=== PATIENT | female | born 1975 | race Caucasian/White ===

== ENCOUNTER 2018-05-04 08:02 | Inpatient (IN) | payer MEDICAID ==
[2018-05-04] MEDS ORDERED: METHYLERGONOVINE 0.2 MG INJ IM ×2 (09:30→17:30)
[2018-05-04] MEDS ORDERED: CARBOPROST 250 MCG INJ IM ×2 (09:30→17:30)
[2018-05-04] MEDS ORDERED: MISOPROSTOL 200 MCG TAB PR ×2 (09:30→17:30)
[2018-05-04] MEDS: LACTATED RINGER'S 1,000 ML IV ×3 (09:32→17:08)
[2018-05-04 11:05] LABS: ADD MAN DIFF? NO
[2018-05-04 11:10] LABS: BASOPHILS % 0.3 % (0.0-2.0); EOSINOPHILS # 0.1 10^3/ul (0.0-0.5); EOSINOPHILS % 0.8 % (0.0-7.0); LYMPHOCYTES # 1.2 10^3/ul (0.8-2.9); LYMPHOCYTES % 14.6 % (15.0-51.0); MEAN CORPUSCULAR HEMOGLOBIN 31.1 pg (29.0-33.0); MEAN CORPUSCULAR HGB CONC 34.2 g/dl (32.0-37.0); MEAN CORPUSCULAR VOLUME 90.9 fl (82.0-101.0); MEAN PLATELET VOLUME 12.3 fl (7.4-10.4); MONOCYTE # 0.4 10^3/ul (0.3-0.9); MONOCYTES % 5.3 % (0.0-11.0); NEUTROPHIL # 6.2 10^3/ul (1.6-7.5); NEUTROPHILS % 78.1 % (39.0-77.0); PLATELET COUNT 145 10^3/UL (140-415); RED BLOOD COUNT 4.18 10^6/ul (4.20-5.40)
[2018-05-04 11:10] LABS: WHITE BLOOD COUNT 7.9 10^3/ul (4.8-10.8)
[2018-05-04] MEDS: CITRIC ACID/NA CITRATE 30 ML CUP PO (11:30)
[2018-05-04] MEDS: METOCLOPRAMIDE 10 MG INJ IV (11:30)
[2018-05-04] MEDS: FAMOTIDINE 20 MG INJ IV (11:30)
[2018-05-04 11:31] LABS: INR 0.95; PROTIME 12.8 Sec (11.9-14.9)
[2018-05-04] MEDS ORDERED: CEFAZOLIN 2 GM/50 ML (PMX) 50 ML IVPB (12:52)
[2018-05-04] MEDS ORDERED: morphine SULFATE/PF (10 MG/10 ML) INJ (12:58)
[2018-05-04] MEDS ORDERED: PHENYLephrine (100 MCG/ML) 10ML SYG (13:21)
[2018-05-04] MEDS ORDERED: ONDANSETRON 4 MG INJ (13:24)
[2018-05-04] MEDS ORDERED: FENTAnyl 50 MCG/ML VIAL IV ×3 (13:30)
[2018-05-04] MEDS ORDERED: HYDROmorphONE 1 MG/5 ML IV SYRINGE IV ×3 (13:30)
[2018-05-04] MEDS ORDERED: ONDANSETRON 4 MG INJ IV ×2 (13:30→14:00)
[2018-05-04] MEDS: CEFAZOLIN 2 GM/50 ML (PMX) 50 ML IVPB (13:30)
[2018-05-04] MEDS ORDERED: DIPHENHYDRAMINE 50 MG INJ IV ×2 (13:30→14:00)
[2018-05-04] MEDS ORDERED: MEPERIDINE 25 MG INJ IV (13:30)
[2018-05-04] MEDS ORDERED: PROCHLORPERAZINE 10 MG INJ IV (13:30)
[2018-05-04] MEDS ORDERED: KETOROLAC 30 MG INJ IV (13:30)
[2018-05-04] MEDS ORDERED: EPHEDrine 25 MG/5 ML SYG (13:38)
[2018-05-04] MEDS ORDERED: OXYTOCIN 30 UNITS/LR 500 ML IV ×2 (13:45→17:30)
[2018-05-04] MEDS ORDERED: HYDROmorphONE 0.5 MG/0.5 ML SYG IV ×2 (14:00)
[2018-05-04] MEDS ORDERED: NALBUPHINE HCL (10 MG/1 ML) INJ IV (14:00)
[2018-05-04] MEDS ORDERED: NALOXONE (0.4 MG/ML) INJ IV (14:00)
[2018-05-04] MEDS ORDERED: ZOLPIDEM 5 MG TAB PO (14:00)
[2018-05-04] MEDS: OXYTOCIN 30 UNITS/LR 500 ML IV ×3 (15:30→17:58)
[2018-05-04] MEDS: KETOROLAC 30 MG INJ IV (15:32)
[2018-05-04] MEDS ORDERED: NA PHOSPHATE/BIPHOS 133 ML ENEMA PR (17:30)
[2018-05-04] MEDS ORDERED: NACL 0.9% 3 ML SYG IV (17:30)
[2018-05-04] MEDS ORDERED: LANOLIN HPA 1 PKT TOP (17:30)
[2018-05-04 21:10] LABS: RAPID PLASMA REAGIN NONREACTIVE (NR)
[2018-05-05] MEDS: LACTATED RINGER'S 1,000 ML IV ×2 (04:19→12:00)
[2018-05-05] MEDS: KETOROLAC 30 MG INJ IV (06:52)
[2018-05-05 08:51] LABS: ADD MAN DIFF? NO
[2018-05-05 08:56] LABS: WHITE BLOOD COUNT 8.7 10^3/ul (4.8-10.8)
[2018-05-05 08:56] LABS: BASOPHILS % 0.2 % (0.0-2.0); EOSINOPHILS % 0.5 % (0.0-7.0); HEMATOCRIT 31.8 % (37.0-47.0); HEMOGLOBIN 10.7 g/dl (12.0-16.0); LYMPHOCYTES # 0.8 10^3/ul (0.8-2.9); LYMPHOCYTES % 9.5 % (15.0-51.0); MEAN CORPUSCULAR HEMOGLOBIN 30.9 pg (29.0-33.0); MEAN CORPUSCULAR HGB CONC 33.6 g/dl (32.0-37.0); MEAN CORPUSCULAR VOLUME 91.9 fl (82.0-101.0); MEAN PLATELET VOLUME 11.5 fl (7.4-10.4); MONOCYTE # 0.4 10^3/ul (0.3-0.9); MONOCYTES % 4.5 % (0.0-11.0); NEUTROPHIL # 7.4 10^3/ul (1.6-7.5); NEUTROPHILS % 84.8 % (39.0-77.0); PLATELET COUNT 125 10^3/UL (140-415); RED BLOOD COUNT 3.46 10^6/ul (4.20-5.40); RED CELL DISTRIBUTION WIDTH 14.1 % (11.5-14.5)
[2018-05-05] MEDS: IBUPROFEN 800 MG TAB PO ×2 (14:21→22:10)
[2018-05-05] MEDS: HYDROCODONE/APAP (5/325) TAB PO ×3 (14:22→23:37)
[2018-05-05] MEDS: INFLUENZA VIRUS VACCINE 0.5 ML (DISPENSING) IM* (16:10)
[2018-05-06] MEDS: IBUPROFEN 800 MG TAB PO (05:48)
[2018-05-06] MEDS: HYDROCODONE/APAP (5/325) TAB PO (07:07)
[2018-05-06] MEDS ORDERED: INFLUENZA VIRUS VACCINE 0.5 ML (DISPENSING) IM* (10:00)
[2018-05-06] MEDS ORDERED: PNEUMOCOCCAL VACCINE 0.5 ML INJ (DISPENSING) IM* (10:00)
[2018-05-06] MEDS: DIPHTH/TET/ACEL PERTUSS (ADULT) 0.5 ML VIAL IM* (11:11)
[2018-05-07] MEDS ORDERED: MEASLES,MUMPS,RUBELLA VACCINE INJ SC* (09:00)
[2018-05-07] MEDS ORDERED: DIPHTH/TET/ACEL PERTUSS (ADULT) 0.5 ML VIAL IM* (09:00)
== END 2018-05-06 11:55 | disposition home or self-care (01) | DRG 785 ==
LOC: L-D 08:02 → PP1 17:14
PROVIDERS: Obstetrics & Gynecology
PROC: 10D00Z1 Extraction of Products of Conception, Low, Open Approach (ICD-10-PCS; principal; 2018-05-04 12:30)
PROC: 0UB70ZZ Excision of Bilateral Fallopian Tubes, Open Approach (ICD-10-PCS; 2018-05-04 12:30)
DX: O34.219 Maternal care for unspecified type scar from previous cesarean delivery (principal); O99.214 Obesity complicating childbirth; E66.9 Obesity, unspecified; Z3A.39 39 weeks gestation of pregnancy; Z37.0 Single live birth; Z30.2 Encounter for sterilization; Z23 Encounter for immunization
CPT/HCPCS: 85025; 85610; 85730; 86592; 86850; 86900; 86901; 88302; 90686; 90715; 99464

== ENCOUNTER 2018-06-06 22:07 | Emergency (ER) | payer MEDICAID ==
[2018-06-06] MEDS: SOD CHLORIDE 0.9% 1,000 ML IV (22:55)
[2018-06-06] MEDS: morphine 4 MG/ML VIAL IV (22:55)
[2018-06-06] MEDS: ONDANSETRON 4 MG INJ IV (22:55)
[2018-06-06 23:01] LABS: ADD MAN DIFF? NO
[2018-06-06 23:04] LABS: BASOPHILS % 0.5 % (0.0-2.0); EOSINOPHILS # 0.1 10^3/ul (0.0-0.5); EOSINOPHILS % 2.3 % (0.0-7.0); HEMATOCRIT 40.9 % (37.0-47.0); HEMOGLOBIN 13.4 g/dl (12.0-16.0); LYMPHOCYTES # 1.5 10^3/ul (0.8-2.9); MEAN CORPUSCULAR HGB CONC 32.8 g/dl (32.0-37.0); MEAN CORPUSCULAR VOLUME 91.7 fl (82.0-101.0); MEAN PLATELET VOLUME 11.1 fl (7.4-10.4); MONOCYTE # 0.5 10^3/ul (0.3-0.9); MONOCYTES % 7.7 % (0.0-11.0); NEUTROPHILS % 65.2 % (39.0-77.0); PLATELET COUNT 178 10^3/UL (140-415); RED BLOOD COUNT 4.46 10^6/ul (4.20-5.40); RED CELL DISTRIBUTION WIDTH 12.3 % (11.5-14.5)
[2018-06-06 23:04] LABS: WHITE BLOOD COUNT 6.1 10^3/ul (4.8-10.8)
[2018-06-06 23:09] LABS: ADD UMIC YES; UR ASCORBIC ACID NEGATIVE (NEGATIVE); UR BILIRUBIN (Dip) NEGATIVE (NEGATIVE); UR BLOOD (Dip) 1+ mg/dL (NEGATIVE); UR CLARITY CLEAR (CLEAR); UR COLOR YELLOW (YELLOW); UR GLUCOSE (Dip) NEGATIVE (NEGATIVE); UR KETONES (Dip) NEGATIVE (NEGATIVE); UR LEUKOCYTE ESTERASE (Dip) NEGATIVE Leu/ul (NEGATIVE); UR MUCUS FEW /HPF (NONE SEEN); UR NITRITE (Dip) NEGATIVE (NEGATIVE); UR RBC 3 /HPF (0-5); UR SPECIFIC GRAVITY (Dip) 1.023 (1.003-1.030); UR SQUAMOUS EPITHELIAL CELL FEW /HPF (FEW); UR TOTAL PROTEIN (Dip) NEGATIVE (NEGATIVE); UR UROBILINOGEN (Dip) NEGATIVE (NEGATIVE); UR WBC 1 /HPF (0-5)
[2018-06-06 23:25] LABS: ALANINE AMINOTRANSFERASE 29 IU/L (13-69); ALBUMIN 4.8 g/dl (3.3-4.9); ALBUMIN/GLOBULIN RATIO 1.33; ALKALINE PHOSPHATASE 130 IU/L (42-121); ANION GAP 14 (5-13); ASPARTATE AMINO TRANSFERASE 43 IU/L (15-46); BILIRUBIN,INDIRECT 0.1 mg/dl (0-1.1); BILIRUBIN,TOTAL 0.1 mg/dl (0.2-1.3); BLOOD UREA NITROGEN 21 mg/dl (7-20); CALCIUM 9.8 mg/dl (8.4-10.2); CARBON DIOXIDE 26 mmol/L (21-31); CHLORIDE 103 mmol/L (97-110); CREATININE 0.62 mg/dl (0.44-1.00); Estimated GFR > 60 mL/min (>60); GLUCOSE 83 mg/dl (70-220); LIPASE 114 U/L (23-300); SODIUM 143 mmol/L (135-144); TOTAL PROTEIN 8.4 g/dl (6.1-8.1)
== END 2018-06-07 01:32 | disposition home or self-care (01) ==
LOC: E/R 06-07 01:32
DX: K80.20 Calculus of gallbladder without cholecystitis without obstruction (principal)
CPT/HCPCS: 36415; 76705; 80053; 81001; 81025; 83690; 85025; 96374; 96375; 99285-25

== ENCOUNTER 2018-06-25 08:44 | Emergency (ER) | payer MEDICAID ==
[2018-06-25 09:21] LABS: URINE BLOOD (Dip) POC Trace-lysed (NEGATIVE); URINE GLUCOSE (Dip) POC Negative (NEGATIVE); URINE KETONES (Dip) POC Negative (NEGATIVE); URINE LEUKOCYTE EST (Dip) POC Negative (NEGATIVE); URINE NITRITE (Dip) POC Negative (NEGATIVE); URINE TOTAL PROTEIN POC Negative (NEGATIVE)
[2018-06-25 09:21] LABS: URINE PH (Dip) POC 5.5 (5.0-8.5)
[2018-06-25] MEDS: PHENAZOPYRIDINE 100 MG TAB PO (09:30)
== END 2018-06-25 10:58 | disposition home or self-care (01) ==
LOC: FTE 08:44
DX: R30.0 Dysuria (principal)
CPT/HCPCS: 81003; 81025; 99282

== ENCOUNTER 2018-06-27 03:19 | Emergency (ER) | payer MEDICAID ==
[2018-06-27 04:37] LABS: URINE BLOOD (Dip) POC Negative (NEGATIVE); URINE KETONES (Dip) POC Trace (NEGATIVE); URINE LEUKOCYTE EST (Dip) POC 3+ (NEGATIVE); URINE NITRITE (Dip) POC Positive (NEGATIVE); URINE TOTAL PROTEIN POC 2+ (NEGATIVE)
[2018-06-27] MEDS: ACETAMINOPHEN 500 MG TAB PO (07:00)
[2018-06-27] MEDS: KETOROLAC 60 MG INJ IM (07:24)
== END 2018-06-27 07:40 | disposition home or self-care (01) ==
LOC: FTE 03:19
DX: N39.0 Urinary tract infection, site not specified (principal)
CPT/HCPCS: 81003; 84703; 96372; 99284-25

== ENCOUNTER 2018-07-05 00:38 | Inpatient (IN) | payer MEDICAID ==
[2018-07-05 01:53] LABS: ADD MAN DIFF? NO
[2018-07-05 01:56] LABS: WHITE BLOOD COUNT 7.4 10^3/ul (4.8-10.8)
[2018-07-05 01:56] LABS: BASOPHILS % 0.5 % (0.0-2.0); EOSINOPHILS # 0.1 10^3/ul (0.0-0.5); EOSINOPHILS % 1.5 % (0.0-7.0); HEMATOCRIT 37.9 % (37.0-47.0); HEMOGLOBIN 12.6 g/dl (12.0-16.0); LYMPHOCYTES # 1.7 10^3/ul (0.8-2.9); LYMPHOCYTES % 22.7 % (15.0-51.0); MEAN CORPUSCULAR HGB CONC 33.2 g/dl (32.0-37.0); MEAN CORPUSCULAR VOLUME 87.1 fl (82.0-101.0); MEAN PLATELET VOLUME 10.8 fl (7.4-10.4); MONOCYTE # 0.5 10^3/ul (0.3-0.9); MONOCYTES % 6.2 % (0.0-11.0); NEUTROPHIL # 5.1 10^3/ul (1.6-7.5); NEUTROPHILS % 68.6 % (39.0-77.0); PLATELET COUNT 222 10^3/UL (140-415); RED BLOOD COUNT 4.35 10^6/ul (4.20-5.40); RED CELL DISTRIBUTION WIDTH 12.3 % (11.5-14.5)
[2018-07-05] MEDS: ONDANSETRON 4 MG INJ IV (02:06)
[2018-07-05] MEDS: morphine 4 MG/ML VIAL IV ×4 (02:06→17:41)
[2018-07-05 02:15] LABS: ALANINE AMINOTRANSFERASE 42 IU/L (13-69); ALBUMIN 4.4 g/dl (3.3-4.9); ALBUMIN/GLOBULIN RATIO 1.29; ALKALINE PHOSPHATASE 102 IU/L (42-121); ANION GAP 11 (5-13); ASPARTATE AMINO TRANSFERASE 43 IU/L (15-46); BILIRUBIN,INDIRECT 0.1 mg/dl (0-1.1); BILIRUBIN,TOTAL 0.1 mg/dl (0.2-1.3); BLOOD UREA NITROGEN 21 mg/dl (7-20); CALCIUM 9.6 mg/dl (8.4-10.2); CARBON DIOXIDE 24 mmol/L (21-31); CHLORIDE 107 mmol/L (97-110); CREATININE 0.78 mg/dl (0.44-1.00); Estimated GFR > 60 mL/min (>60); GLUCOSE 92 mg/dl (70-220); LIPASE 84 U/L (23-300); POTASSIUM 3.9 mmol/L (3.5-5.1); SODIUM 142 mmol/L (135-144); TOTAL PROTEIN 7.8 g/dl (6.1-8.1)
[2018-07-05] MEDS: HYDROmorphONE 0.5 MG/0.5 ML SYG IV (02:44)
[2018-07-05] MEDS: HYDROmorphONE 2 MG/ML SYG IV (03:25)
[2018-07-05] MEDS ORDERED: ACETAMINOPHEN 325 MG TAB PO ×2 (04:30→05:00)
[2018-07-05] MEDS ORDERED: ONDANSETRON 4 MG INJ IV ×2 (04:30→05:00)
[2018-07-05] MEDS: AMPICILLIN/SULB 3 GM/NS (PMX) 100 ML IVPB (04:45)
[2018-07-05] MEDS ORDERED: NACL 0.9% 3 ML SYG IV (05:00)
[2018-07-05] MEDS ORDERED: HYDROCODONE/APAP (5/325) TAB PO (05:00)
[2018-07-05] MEDS: DEXTROSE 5%-0.45% NACL 1,000 ML IV ×2 (11:24→14:38)
[2018-07-05] MEDS ORDERED: FENTAnyl 50 MCG/ML VIAL (13:38)
[2018-07-05] MEDS ORDERED: ROCURONIUM 50 MG INJ (13:38)
[2018-07-05] MEDS ORDERED: MIDAZOLAM 1 MG/ML 2 ML INJ (13:38)
[2018-07-05] MEDS ORDERED: DEXAMETHASONE 4 MG/ML 5 ML INJ (13:38)
[2018-07-05] MEDS ORDERED: PROPOFOL 20 ML (13:38)
[2018-07-05] MEDS ORDERED: CEFAZOLIN 1 GM INJ (13:38)
[2018-07-05] MEDS ORDERED: ONDANSETRON 4 MG INJ (13:38)
[2018-07-05] MEDS ORDERED: GLYCOPYRROLATE 0.4 MG INJ (13:38)
[2018-07-05] MEDS ORDERED: NEOSTIGMINE 3 MG/3 ML SYRINGE (13:38)
[2018-07-05] MEDS ORDERED: ROPIVACAINE 0.5 % 30 ML VIAL (13:40)
[2018-07-05] MEDS ORDERED: SUGAMMADEX SODIUM 200 MG/2 ML VIAL IV (13:42)
[2018-07-05] MEDS: LIDOCAINE 1% (MPF) 30 ML INJ (15:03)
[2018-07-05] MEDS: BUPIVACAINE 0.5%/EPI (SDV) 30 ML INJ (15:03)
[2018-07-05] MEDS ORDERED: KETOROLAC 30 MG INJ (15:22)
[2018-07-05] MEDS: HYDROCODONE/APAP (5/325) TAB PO (21:00)
[2018-07-06] MEDS: DEXTROSE 5%-0.45% NACL 1,000 ML IV ×3 (03:43→14:09)
[2018-07-06 07:30] LABS: ADD MAN DIFF? NO
[2018-07-06 07:43] LABS: BASOPHILS % 0.1 % (0.0-2.0); HEMATOCRIT 38.5 % (37.0-47.0); HEMOGLOBIN 12.8 g/dl (12.0-16.0); LYMPHOCYTES # 0.7 10^3/ul (0.8-2.9); LYMPHOCYTES % 9.1 % (15.0-51.0); MEAN CORPUSCULAR HEMOGLOBIN 28.8 pg (29.0-33.0); MEAN CORPUSCULAR HGB CONC 33.2 g/dl (32.0-37.0); MEAN CORPUSCULAR VOLUME 86.5 fl (82.0-101.0); MEAN PLATELET VOLUME 10.7 fl (7.4-10.4); MONOCYTE # 0.3 10^3/ul (0.3-0.9); MONOCYTES % 4.3 % (0.0-11.0); NEUTROPHIL # 6.2 10^3/ul (1.6-7.5); NEUTROPHILS % 86.1 % (39.0-77.0); PLATELET COUNT 221 10^3/UL (140-415); RED BLOOD COUNT 4.45 10^6/ul (4.20-5.40); RED CELL DISTRIBUTION WIDTH 12.3 % (11.5-14.5)
[2018-07-06 07:43] LABS: WHITE BLOOD COUNT 7.2 10^3/ul (4.8-10.8)
[2018-07-06] MEDS: morphine 4 MG/ML VIAL IV (07:48)
[2018-07-06 08:01] LABS: ALANINE AMINOTRANSFERASE 858 IU/L (13-69); ALBUMIN 4.2 g/dl (3.3-4.9); ALBUMIN/GLOBULIN RATIO 1.23; ALKALINE PHOSPHATASE 241 IU/L (42-121); ANION GAP 9 (5-13); ASPARTATE AMINO TRANSFERASE 715 IU/L (15-46); BILIRUBIN,INDIRECT 0.5 mg/dl (0-1.1); BILIRUBIN,TOTAL 0.5 mg/dl (0.2-1.3); BLOOD UREA NITROGEN 11 mg/dl (7-20); CARBON DIOXIDE 24 mmol/L (21-31); CHLORIDE 106 mmol/L (97-110); CREATININE 0.39 mg/dl (0.44-1.00); Estimated GFR > 60 mL/min (>60); GLUCOSE 129 mg/dl (70-220); MAGNESIUM 1.8 mg/dl (1.7-2.5); PHOSPHORUS 3.6 mg/dl (2.5-4.9); POTASSIUM 4.2 mmol/L (3.5-5.1); SODIUM 139 mmol/L (135-144); TOTAL PROTEIN 7.6 g/dl (6.1-8.1)
[2018-07-06] MEDS: HYDROCODONE/APAP (5/325) TAB PO ×3 (09:20→23:55)
[2018-07-06 15:15] LABS: HAAIG REFLEX REFLEX FILED
[2018-07-06 15:39] LABS: ALANINE AMINOTRANSFERASE 835 IU/L (13-69); ALBUMIN 4.6 g/dl (3.3-4.9); ALBUMIN/GLOBULIN RATIO 1.31; ALKALINE PHOSPHATASE 249 IU/L (42-121); ANION GAP 10 (5-13); ASPARTATE AMINO TRANSFERASE 616 IU/L (15-46); BILIRUBIN,INDIRECT 0.3 mg/dl (0-1.1); BILIRUBIN,TOTAL 0.3 mg/dl (0.2-1.3); BLOOD UREA NITROGEN 10 mg/dl (7-20); CALCIUM 9.5 mg/dl (8.4-10.2); CARBON DIOXIDE 26 mmol/L (21-31); CHLORIDE 106 mmol/L (97-110); CREATININE 0.52 mg/dl (0.44-1.00); Estimated GFR > 60 mL/min (>60); GLUCOSE 98 mg/dl (70-220); POTASSIUM 3.9 mmol/L (3.5-5.1); SODIUM 142 mmol/L (135-144); TOTAL PROTEIN 8.1 g/dl (6.1-8.1)
[2018-07-06 16:09] LABS: HEPATITIS B SURFACE ANTIGEN NEGATIVE (NEGATIVE)
[2018-07-06 16:27] LABS: HEPATITIS B CORE ANTIBODY NEGATIVE (NEGATIVE); HEPATITIS C VIRAL ANTIBODY NEGATIVE (NEGATIVE)
[2018-07-07] MEDS: DEXTROSE 5%-0.45% NACL 1,000 ML IV ×2 (01:37→11:49)
[2018-07-07 07:14] LABS: ADD MAN DIFF? NO
[2018-07-07 07:15] LABS: BASOPHILS % 0.5 % (0.0-2.0); EOSINOPHILS # 0.1 10^3/ul (0.0-0.5); EOSINOPHILS % 1.3 % (0.0-7.0); HEMATOCRIT 34.2 % (37.0-47.0); HEMOGLOBIN 11.4 g/dl (12.0-16.0); LYMPHOCYTES # 1.9 10^3/ul (0.8-2.9); LYMPHOCYTES % 32.5 % (15.0-51.0); MEAN CORPUSCULAR HEMOGLOBIN 29.1 pg (29.0-33.0); MEAN CORPUSCULAR HGB CONC 33.3 g/dl (32.0-37.0); MEAN CORPUSCULAR VOLUME 87.2 fl (82.0-101.0); MEAN PLATELET VOLUME 10.5 fl (7.4-10.4); MONOCYTE # 0.4 10^3/ul (0.3-0.9); MONOCYTES % 6.7 % (0.0-11.0); NEUTROPHIL # 3.5 10^3/ul (1.6-7.5); NEUTROPHILS % 58.5 % (39.0-77.0); PLATELET COUNT 164 10^3/UL (140-415); RED BLOOD COUNT 3.92 10^6/ul (4.20-5.40); RED CELL DISTRIBUTION WIDTH 12.7 % (11.5-14.5)
[2018-07-07 07:36] LABS: ALANINE AMINOTRANSFERASE 493 IU/L (13-69); ALBUMIN 3.5 g/dl (3.3-4.9); ALKALINE PHOSPHATASE 173 IU/L (42-121); ASPARTATE AMINO TRANSFERASE 194 IU/L (15-46); BILIRUBIN,INDIRECT 0.2 mg/dl (0-1.1); BILIRUBIN,TOTAL 0.2 mg/dl (0.2-1.3); MAGNESIUM 1.9 mg/dl (1.7-2.5); PHOSPHORUS 2.8 mg/dl (2.5-4.9); TOTAL PROTEIN 6.2 g/dl (6.1-8.1)
== END 2018-07-07 16:20 | disposition home or self-care (01) | DRG 419 ==
LOC: E/R 00:38 → PP2 04:24
PROC: 0FT44ZZ Resection of Gallbladder, Percutaneous Endoscopic Approach (ICD-10-PCS; principal; 2018-07-05 14:42)
PROC: BF101ZZ Fluoroscopy of Bile Ducts using Low Osmolar Contrast (ICD-10-PCS; 2018-07-05 14:42)
DX: K80.10 Calculus of gallbladder with chronic cholecystitis without obstruction (principal)
CPT/HCPCS: 36415; 76705; 80053; 80076; 81025; 83690; 83735; 84100; 85025; 86704; 86709; 86803; 87081; 87340; 88304; 96374; 96375; 96376; 99285-25; G0378

== ENCOUNTER 2018-10-28 02:09 | Emergency (ER) | payer MEDICAID | END 2018-10-28 02:30 | disposition home or self-care (01) | LOC: E/R 02:09 | DX: N30.00 Acute cystitis without hematuria (principal) | CPT/HCPCS: 99283; Z7502 ==

== ENCOUNTER 2018-11-12 23:23 | Emergency (ER) | payer MEDICAID ==
[2018-11-13 02:01] LABS: URINE BLOOD (Dip) POC 1+ (NEGATIVE); URINE GLUCOSE (Dip) POC Negative (NEGATIVE); URINE KETONES (Dip) POC Negative (NEGATIVE); URINE LEUKOCYTE EST (Dip) POC Negative (NEGATIVE); URINE NITRITE (Dip) POC Negative (NEGATIVE); URINE TOTAL PROTEIN POC Trace (NEGATIVE)
[2018-11-13 02:01] LABS: URINE PH (Dip) POC 5.5 (5.0-8.5)
== END 2018-11-13 03:35 | disposition home or self-care (01) ==
LOC: E/R 23:23
DX: F45.8 Other somatoform disorders (principal); N30.90 Cystitis, unspecified without hematuria
CPT/HCPCS: 70360; 81003; 81025; 99283-25